=== PATIENT | female | born 1945 | race African-American/Black ===

== ENCOUNTER 2018-05-03 15:10 | Inpatient (IN) | payer MEDICARE, MEDICAID, OTHER ==
[~2018-05-03] VITALS: Ht 167.6 cm; Wt 74.1 kg
[2018-05-03 20:23] LABS: BASOPHILS % 0.5 % (0.0-2.0); HEMATOCRIT. 36.1 % (36.0-48.0); LYMPHOCYTES % 21.4 % (20.0-50.0); MEAN CORPUSCULAR HEMOGLOBIN 29.2 pg (28.0-32.0); MEAN CORPUSCULAR VOLUME 88.1 fL (81.0-99.0); MEAN PLATELET VOLUME 8.3 fl (7.4-10.4); MONOCYTES % 8.9 % (2.0-8.0); NEUTROPHILS % 68.2 % (40.0-76.0); PLATELET 318 x1000/uL (130-400); RED CELL DISTRIBUTION WIDTH 15.4 % (11.6-14.6)
[2018-05-03 20:28] LABS: CHLORIDE 104 mEq/L (98-107)
[2018-05-03 20:29] LABS: PARTIAL THROMBOPLASTIN TIME 25.7 sec (23.4-31.0); PROTHROMBIN TIME 10.1 sec (9.1-11.1)
[2018-05-03] MEDS ORDERED: SODIUM CHLORIDE 0.9% 1,000 ML IV ONE (20:53)
[2018-05-04] MEDS ORDERED: ONDANSETRON HCL 4MG/2ML INJ IV PRN (10:30)
[2018-05-04] MEDS ORDERED: ACETAMINOPHEN 325MG TABLET PO PRN (10:30)
[2018-05-04 10:35] VITALS: BP_SYST 126; BP_SYST 142; BP_SYST 162; BP_DIAS 74; BP_DIAS 75; BP_DIAS 81
[2018-05-04 12:00] VITALS: BP_SYST 124; BP_SYST 139; BP_SYST 140; BP_DIAS 67; BP_DIAS 77; BP_DIAS 84
[2018-05-04] MEDS: AMLODIPINE 5MG TABLET PO SCH ×2 (13:16→21:21)
[2018-05-04 14:22] VITALS: BP 162/81
[2018-05-04] MEDS ORDERED: OLME1TAB44 MT (14:52)
[2018-05-04] MEDS ORDERED: ZIPR60CA6 MT (14:52)
[2018-05-04] MEDS ORDERED: BENZ1TAB7 MT (14:52)
[2018-05-04] MEDS ORDERED: LORA1TAB PO (14:52)
[2018-05-04 16:00] VITALS: BP_SYST 125; BP_SYST 130; BP_DIAS 55; BP_DIAS 72
[2018-05-04 18:31] VITALS: BP 148/74
[2018-05-04 19:51] LABS: T4 FREE 1.02 ng/dL (0.76-1.46)
[2018-05-04 19:52] LABS: CREATINE KINASE MB FRACTION 1.5 ng/mL (0.5-3.6)
[2018-05-04 20:00] VITALS: BP 99/51
[2018-05-05] VITALS (7 sets, daily range): BP systolic 108–148; BP diastolic 57–78
[2018-05-05 00:30] LABS: CREATINE KINASE MB FRACTION 1.2 ng/mL (0.5-3.6)
[2018-05-05 06:17] LABS: BASOPHILS % 0.6 % (0.0-2.0); EOSINOPHILS % 2.5 % (0.0-5.0); HEMATOCRIT. 37.4 % (36.0-48.0); HEMOGLOBIN. 12.2 g/dL (12.0-16.0); LYMPHOCYTES % 22.7 % (20.0-50.0); MEAN CORPUSCULAR HEMOGLOBIN 28.9 pg (28.0-32.0); MEAN CORPUSCULAR VOLUME 88.7 fL (81.0-99.0); MEAN PLATELET VOLUME 8.2 fl (7.4-10.4); MONOCYTES % 9.3 % (2.0-8.0); NEUTROPHILS % 64.9 % (40.0-76.0); PLATELET 338 x1000/uL (130-400); RED BLOOD CELL COUNT 4.22 mill/uL (4.2-5.4); RED CELL DISTRIBUTION WIDTH 15.6 % (11.6-14.6)
[2018-05-05 06:33] LABS: CHLORIDE 106 mEq/L (98-107)
[2018-05-05 06:42] LABS: CREATINE KINASE 46 IU/L (26-192)
[2018-05-05 06:44] LABS: CREATINE KINASE MB FRACTION < 1.0 ng/mL (0.5-3.6)
[2018-05-05] MEDS: AMLODIPINE 5MG TABLET PO SCH (09:21)
== END 2018-05-05 19:00 | disposition home or self-care (01) | DRG 74 ==
LOC: ER 15:10 → 5WST 20:54 → EDBEDREQTM 20:58 → EDBEDREQ 20:58 → ENRESERV 05-04 07:11
PROVIDERS: ADMIT Internal Medicine; ATTEND Internal Medicine
DX: G90.8 Other disorders of autonomic nervous system (principal); E78.5 Hyperlipidemia, unspecified; E86.0 Dehydration; I11.9 Hypertensive heart disease without heart failure; G93.0 Cerebral cysts; M25.569 Pain in unspecified knee; Z87.891 Personal history of nicotine dependence; Z86.69 Personal history of other diseases of the nervous system and sense organs
CPT/HCPCS: 36415; 70551; 71045; 80048; 80061; 82550; 82553; 83036; 83880; 84439; 84443; 84484; 85379; 93005; 93306; 93880; 93923; 93970; 96360; 96361; 97161; 99285; J7030

== ENCOUNTER → 2018-06-16 | Outpatient (CLI) | payer MEDICARE, OTHER ==
[~2018-06-16] MED LIST: BENZ1TAB7 MT; LORA1TAB PO; OLME1TAB44 MT; ZIPR60CA6 MT
== END | disposition home or self-care (01) ==
LOC: MRI 10:44
PROVIDERS: ATTEND Neurological Surgery
DX: M48.061 Spinal stenosis, lumbar region without neurogenic claudication (principal); M47.816 Spondylosis without myelopathy or radiculopathy, lumbar region
CPT/HCPCS: 72148

== ENCOUNTER → 2018-06-26 | Outpatient (CLI) | payer MEDICARE, OTHER | END | disposition home or self-care (01) | LOC: MRI 12:01 | PROVIDERS: ATTEND Neurological Surgery | DX: M47.812 Spondylosis without myelopathy or radiculopathy, cervical region (principal); M48.02 Spinal stenosis, cervical region; G95.89 Other specified diseases of spinal cord; G95.29 Other cord compression; M25.78 Osteophyte, vertebrae | CPT/HCPCS: 72141 ==

== ENCOUNTER 2020-11-11 18:15 | Inpatient (IN) | payer MEDICARE, MEDICAID ==
[~2020-11-11] VITALS: Ht 170.2 cm; Wt 74.6 kg
[~2020-11-11 18:15] MED LIST changes: -OLME1TAB44 MT; +OLME1TAB92 MT
[2020-11-11] MEDS ORDERED: SODIUM CHLORIDE 0.9% 1,000 ML IV ONE (19:00)
[2020-11-11 19:20] LABS: BG BASE EXCESS -1.4 mmol/L (-2.0-2.0); BG CARBOXYHEMOGLOBIN 0.3 % (0.5-1.5); BG FRACTION INSPIRED OXYGEN 21; BG HCO3 ACT 22.8 mmol/L (22.0-26.0); BG METHEMOGLOBIN 0.1 % (0.0-1.5); BG OXYHEMOGLOBIN 91.6 % (94.0-97.0); BG PCO2 36.9 mmHg (35.0-45.0); BG PH 7.409 (7.350-7.450); BG PO2 66.1 mmHg (75.0-100.0); BG SAMPLE SITE RIGHT RADIAL; BG TOTAL HEMOGLOBIN 12.6 g/dL (12.0-18.0); BG VENT MODE ROOM AIR
[2020-11-11 19:35] LABS: HEMATOCRIT. 35.6 % (36.0-48.0); HEMOGLOBIN. 11.6 g/dL (12.0-16.0); MEAN CORPUSCULAR HEMOGLOBIN 28.5 pg (28.0-32.0); MEAN CORPUSCULAR VOLUME 87.3 fL (81.0-99.0); PLATELET 301 x1000/uL (130-400); RED BLOOD CELL COUNT 4.08 mill/uL (4.2-5.4); RED CELL DISTRIBUTION WIDTH 16.6 % (11.6-14.6)
[2020-11-11 19:42] LABS: CHLORIDE 106 mEq/L (98-107)
[2020-11-11 20:14] LABS: PLATELET ESTIMATE NORMAL
[2020-11-11 21:47] LABS: CLARITY URINE CLOUDY (CLEAR); COLOR URINE DARK YELLOW (YELLOW); KETONES URINE TRACE (NEGATIVE); LEUKOCYTE ESTERASE URINE NEGATIVE (NEGATIVE); NITRITE URINE NEGATIVE (NEGATIVE); OCCULT BLOOD URINE 2+ (NEGATIVE); PROTEIN URINE 2+ (NEGATIVE); SPECIFIC GRAVITY URINE 1.023 (1.005-1.030)
[2020-11-11] MEDS ORDERED: MAGNESIUM/ALUMINUM HYDROXIDE/SIMETHICONE 30ML UDC PO PRN (23:30)
[2020-11-11] MEDS ORDERED: DIPHENHYDRAMINE 50MG/ML VIAL IV PRN (23:30)
[2020-11-11] MEDS ORDERED: ONDANSETRON HCL 4MG/2ML INJ IV PRN (23:30)
[2020-11-11] MEDS ORDERED: ACETAMINOPHEN 325MG TABLET PO PRN ×2 (23:30)
[2020-11-11] MEDS ORDERED: CLONIDINE 0.1MG TABLET PO PRN (23:45)
[2020-11-11] MEDS: SODIUM CHLORIDE 0.9% 1,000 ML IV SCH (23:58)
[2020-11-12 05:47] LABS: BASOPHILS % 0.3 % (0.0-2.0); EOSINOPHILS % 0.8 % (0.0-5.0); HEMATOCRIT. 34.7 % (36.0-48.0); HEMOGLOBIN. 11.3 g/dL (12.0-16.0); LYMPHOCYTES % 13.5 % (20.0-50.0); MEAN CORPUSCULAR HEMOGLOBIN 27.9 pg (28.0-32.0); MEAN PLATELET VOLUME 8.1 fl (7.4-10.4); MONOCYTES % 10.2 % (2.0-8.0); NEUTROPHILS % 75.2 % (40.0-76.0); PLATELET 307 x1000/uL (130-400); RED BLOOD CELL COUNT 4.04 mill/uL (4.2-5.4); RED CELL DISTRIBUTION WIDTH 16.4 % (11.6-14.6)
[2020-11-12 06:02] LABS: PHOSPHORUS 3.5 mg/dL (2.5-4.9)
[2020-11-12] MEDS: SODIUM CHLORIDE 0.9% 1,000 ML IV SCH ×3 (09:35→22:40)
[2020-11-12] MEDS: PANTOPRAZOLE SODIUM 40 MG/VIAL IV SCH (09:35)
[2020-11-12 13:15] VITALS: BP 154/74
[2020-11-12] MEDS ORDERED: IPRATROPIUM/ALBUTEROL 0.5-3(2.5)MG/3ML NEB HHN PRN (14:30)
[2020-11-12 14:39] VITALS: BP 138/85
[2020-11-12] MEDS: IPRATROPIUM/ALBUTEROL 0.5-3(2.5)MG/3ML NEB HHN SCH ×2 (14:50→20:16)
[2020-11-12 16:22] VITALS: BP 119/74
[2020-11-12] MEDS: ENOXAPARIN 30MG/0.3ML SYR SUBCUT SCH (17:57)
[2020-11-12 19:01] VITALS: BP 118/74
[2020-11-12 20:00] VITALS: BP 145/66
[2020-11-12] MEDS ORDERED: ENOXAPARIN 40MG/0.4ML SYR SUBCUT SCH (20:00)
[2020-11-12] MEDS: BUDESONIDE 0.5MG/2ML NEB HHN SCH (20:16)
[2020-11-12] MEDS: QUETIAPINE FUMARATE 25MG TABLET PO SCH (21:45)
[2020-11-12] MEDS: AMLODIPINE 5MG TABLET PO SCH (21:45)
[2020-11-12 22:00] VITALS: BP 168/85
[2020-11-13] VITALS (13 sets, daily range): BP systolic 76–194; BP diastolic 46–104
[2020-11-13] MEDS: IPRATROPIUM/ALBUTEROL 0.5-3(2.5)MG/3ML NEB HHN SCH ×4 (02:23→21:55)
[2020-11-13] MEDS: SODIUM CHLORIDE 0.9% 1,000 ML IV SCH ×2 (06:18→23:59)
[2020-11-13] MEDS: AMLODIPINE 5MG TABLET PO SCH ×2 (08:48→21:00)
[2020-11-13] MEDS: QUETIAPINE FUMARATE 25MG TABLET PO SCH ×2 (08:48→21:00)
[2020-11-13] MEDS: BUDESONIDE 0.5MG/2ML NEB HHN SCH ×2 (09:21→21:55)
[2020-11-13] MEDS: PANTOPRAZOLE SODIUM 40 MG/VIAL IV SCH (09:26)
[2020-11-13 12:28] LABS: BG BASE EXCESS -5.4 mmol/L (-2.0-2.0); BG DEOXYHEMOGLOBIN 4.8 % (0.0-5.0); BG FRACTION INSPIRED OXYGEN 28; BG HCO3 ACT 17.8 mmol/L (22.0-26.0); BG METHEMOGLOBIN 0.2 % (0.0-1.5); BG OXYGEN SATURATION 95.2 % (92.0-98.5); BG PH 7.421 (7.350-7.450); BG PO2 77.3 mmHg (75.0-100.0); BG SAMPLE SITE LEFT RADIAL; BG VENT MODE NASAL CANNULA
[2020-11-13 14:16] LABS: T4 FREE 1.49 ng/dL (0.76-1.46)
[2020-11-13 14:53] LABS: CLARITY URINE CLOUDY (CLEAR); COLOR URINE YELLOW (YELLOW); KETONES URINE NEGATIVE (NEGATIVE); LEUKOCYTE ESTERASE URINE NEGATIVE (NEGATIVE); NITRITE URINE NEGATIVE (NEGATIVE); OCCULT BLOOD URINE 2+ (NEGATIVE); PH URINE 5.5 (4.5-8.0); PROTEIN URINE 2+ (NEGATIVE); SPECIFIC GRAVITY URINE 1.017 (1.005-1.030); UROBILINOGEN URINE 0.2 E.U./dL (0.2-1.0)
[2020-11-13] MEDS: ENOXAPARIN 30MG/0.3ML SYR SUBCUT SCH (16:10)
[2020-11-13] MEDS ORDERED: CEFTRIAXONE 1,000 MG in DEXTROSE 5% WATER 50 ML IV SCH (20:00)
[2020-11-13] MEDS ORDERED: BENZTROPINE MESYLATE 0.5MG TABLET PO SCH (21:00)
[2020-11-13] MEDS ORDERED: SODIUM CHLORIDE 0.9% 1,000 ML IV NR (21:45)
[2020-11-13] MEDS ORDERED: SODIUM CHLORIDE 0.9% 500 ML IV ONE (23:15)
[2020-11-13] MEDS: SODIUM CHLORIDE 0.9% 500 ML IV NR ×2 (23:16→23:58)
[2020-11-14] VITALS (12 sets, daily range): BP systolic 90–149; BP diastolic 51–72
[2020-11-14] MEDS: IPRATROPIUM/ALBUTEROL 0.5-3(2.5)MG/3ML NEB HHN SCH ×4 (01:29→20:12)
[2020-11-14] MEDS ORDERED: RISPERIDONE 1MG TABLET PO SCH (09:00)
[2020-11-14] MEDS: PANTOPRAZOLE SODIUM 40 MG/VIAL IV SCH (09:04)
[2020-11-14] MEDS: QUETIAPINE FUMARATE 25MG TABLET PO SCH ×2 (09:04→20:13)
[2020-11-14] MEDS: SODIUM CHLORIDE 0.9% 1,000 ML IV SCH (09:04)
[2020-11-14] MEDS: AMLODIPINE 5MG TABLET PO SCH ×2 (09:04→20:13)
[2020-11-14 12:51] LABS: HEMATOCRIT. 30.6 % (36.0-48.0); HEMOGLOBIN. 9.8 g/dL (12.0-16.0); MEAN CORPUSCULAR HEMOGLOBIN 27.9 pg (28.0-32.0); MEAN CORPUSCULAR VOLUME 86.7 fL (81.0-99.0); MEAN PLATELET VOLUME 8.7 fl (7.4-10.4); PLATELET 215 x1000/uL (130-400); RED BLOOD CELL COUNT 3.53 mill/uL (4.2-5.4); RED CELL DISTRIBUTION WIDTH 16.8 % (11.6-14.6)
[2020-11-14 13:00] LABS: CHLORIDE 119 mEq/L (98-107)
[2020-11-14] MEDS: BUDESONIDE 0.5MG/2ML NEB HHN SCH ×2 (13:20→20:13)
[2020-11-14] MEDS: ENOXAPARIN 30MG/0.3ML SYR SUBCUT SCH (16:29)
[2020-11-14] MEDS: PIPERACILLIN/TAZOBACTAM 3.375 G in DEXTROSE 5% WATER 50 ML IV SCH ×2 (16:29→20:21)
[2020-11-14 17:46] LABS: PLATELET ESTIMATE NORMAL
[2020-11-14] MEDS: DEXT 5%/0.45% NACL KCL 20MEQ/L 1,000 ML IV SCH (20:21)
[2020-11-14] MEDS ORDERED: VANCOMYCIN 1 G PREMIX 200 ML IV SCH ×2 (22:00)
[2020-11-15] VITALS (12 sets, daily range): BP systolic 100–146; BP diastolic 51–85
[2020-11-15] MEDS: IPRATROPIUM/ALBUTEROL 0.5-3(2.5)MG/3ML NEB HHN SCH ×4 (04:25→21:22)
[2020-11-15] MEDS: DEXT 5%/0.45% NACL KCL 20MEQ/L 1,000 ML IV SCH ×2 (04:52→14:36)
[2020-11-15 07:11] LABS: HEMATOCRIT. 31.8 % (36.0-48.0); HEMOGLOBIN. 10.2 g/dL (12.0-16.0); MEAN CORPUSCULAR HEMOGLOBIN 27.8 pg (28.0-32.0); MEAN CORPUSCULAR VOLUME 86.7 fL (81.0-99.0); MEAN PLATELET VOLUME 9.3 fl (7.4-10.4); PLATELET 225 x1000/uL (130-400); RED BLOOD CELL COUNT 3.67 mill/uL (4.2-5.4); RED CELL DISTRIBUTION WIDTH 16.5 % (11.6-14.6)
[2020-11-15 07:40] LABS: CORTISOL 17.6 ucg/dL
[2020-11-15 07:51] LABS: HEPATITIS B SURFACE ANTIGEN NEGATIVE
[2020-11-15] MEDS ORDERED: FAMOTIDINE 20MG TABLET PO SCH (09:00)
[2020-11-15] MEDS: AMLODIPINE 5MG TABLET PO SCH ×2 (09:00→20:38)
[2020-11-15] MEDS: BUDESONIDE 0.5MG/2ML NEB HHN SCH (10:07)
[2020-11-15] MEDS: PIPERACILLIN/TAZOBACTAM 3.375 G in DEXTROSE 5% WATER 50 ML IV SCH ×2 (10:46→20:37)
[2020-11-15] MEDS: QUETIAPINE FUMARATE 25MG TABLET PO SCH ×2 (10:46→20:38)
[2020-11-15] MEDS: FAMOTIDINE 20MG/2ML VIAL IV SCH (10:49)
[2020-11-15] MEDS ORDERED: VANCOMYCIN 750 MG PREMIX 150 ML IV SCH (12:30)
[2020-11-15] MEDS: ENOXAPARIN 30MG/0.3ML SYR SUBCUT SCH (18:09)
[2020-11-15 19:35] LABS: PLATELET ESTIMATE NORMAL
[2020-11-16] VITALS (10 sets, daily range): BP systolic 111–161; BP diastolic 66–94
[2020-11-16] MEDS: DEXT 5%/0.45% NACL KCL 20MEQ/L 1,000 ML IV SCH ×3 (01:36→21:41)
[2020-11-16] MEDS: IPRATROPIUM/ALBUTEROL 0.5-3(2.5)MG/3ML NEB HHN SCH ×3 (02:23→14:30)
[2020-11-16] MEDS: QUETIAPINE FUMARATE 25MG TABLET PO SCH ×2 (08:46→21:41)
[2020-11-16] MEDS: PIPERACILLIN/TAZOBACTAM 3.375 G in DEXTROSE 5% WATER 50 ML IV SCH ×3 (08:46→21:54)
[2020-11-16] MEDS: AMLODIPINE 5MG TABLET PO SCH ×2 (08:46→21:41)
[2020-11-16] MEDS: FAMOTIDINE 20MG/2ML VIAL IV SCH (08:46)
[2020-11-16] MEDS ORDERED: MAGNESIUM 4 G PREMIX 100 ML IV NR (16:30)
[2020-11-16] MEDS: ENOXAPARIN 30MG/0.3ML SYR SUBCUT SCH (16:36)
[2020-11-17 00:19] VITALS: BP 140/75
[2020-11-17] MEDS: IPRATROPIUM/ALBUTEROL 0.5-3(2.5)MG/3ML NEB HHN SCH ×4 (01:54→20:45)
[2020-11-17 04:00] VITALS: BP 147/73
[2020-11-17] MEDS: DEXT 5%/0.45% NACL KCL 20MEQ/L 1,000 ML IV SCH ×2 (06:11→16:44)
[2020-11-17] MEDS: PIPERACILLIN/TAZOBACTAM 3.375 G in DEXTROSE 5% WATER 50 ML IV SCH ×3 (06:12→21:13)
[2020-11-17 07:06] LABS: HEMATOCRIT. 39.9 % (36.0-48.0); HEMOGLOBIN. 12.4 g/dL (12.0-16.0); MEAN CORPUSCULAR HEMOGLOBIN 27.8 pg (28.0-32.0); MEAN CORPUSCULAR VOLUME 89.6 fL (81.0-99.0); MEAN PLATELET VOLUME 8.9 fl (7.4-10.4); PLATELET 206 x1000/uL (130-400); RED BLOOD CELL COUNT 4.45 mill/uL (4.2-5.4)
[2020-11-17 08:02] VITALS: BP 138/93
[2020-11-17] MEDS: QUETIAPINE FUMARATE 25MG TABLET PO SCH ×2 (08:18→21:13)
[2020-11-17] MEDS: AMLODIPINE 5MG TABLET PO SCH ×2 (08:18→21:14)
[2020-11-17] MEDS: FAMOTIDINE 20MG TABLET PO SCH (08:18)
[2020-11-17 11:45] VITALS: BP 140/84
[2020-11-17 12:47] LABS: PLATELET ESTIMATE NORMAL
[2020-11-17 16:02] VITALS: BP 143/82
[2020-11-17] MEDS: ENOXAPARIN 40MG/0.4ML SYR SUBCUT SCH (16:43)
[2020-11-17] MEDS ORDERED: MAGNESIUM HYDROXIDE 400MG/5ML 30ML UDC PO NR (17:05)
[2020-11-17] MEDS ORDERED: BISACODYL 10MG SUPP PR NR (17:05)
[2020-11-17 20:00] VITALS: BP 148/87
[2020-11-18] VITALS: BP 130/60
[2020-11-18] MEDS: IPRATROPIUM/ALBUTEROL 0.5-3(2.5)MG/3ML NEB HHN SCH ×4 (01:40→22:00)
[2020-11-18] MEDS: DEXT 5%/0.45% NACL KCL 20MEQ/L 1,000 ML IV SCH ×3 (03:06→23:00)
[2020-11-18 04:00] VITALS: BP 153/67
[2020-11-18] MEDS: PIPERACILLIN/TAZOBACTAM 3.375 G in DEXTROSE 5% WATER 50 ML IV SCH ×3 (06:22→21:05)
[2020-11-18 08:00] VITALS: BP 167/74
[2020-11-18] MEDS: DOCUSATE SODIUM 100MG CAPSULE PO SCH ×2 (09:08→18:12)
[2020-11-18] MEDS: FAMOTIDINE 20MG TABLET PO SCH (09:08)
[2020-11-18] MEDS: QUETIAPINE FUMARATE 25MG TABLET PO SCH ×2 (09:09→21:05)
[2020-11-18] MEDS: AMLODIPINE 5MG TABLET PO SCH ×2 (09:09→21:05)
[2020-11-18 12:00] VITALS: BP 164/62
[2020-11-18 16:06] VITALS: BP 155/80
[2020-11-18] MEDS: ENOXAPARIN 40MG/0.4ML SYR SUBCUT SCH (18:11)
[2020-11-18 20:00] VITALS: BP 150/75
[2020-11-19] VITALS: BP 158/91
[2020-11-19] MEDS: IPRATROPIUM/ALBUTEROL 0.5-3(2.5)MG/3ML NEB HHN SCH ×4 (01:45→21:49)
[2020-11-19 04:00] VITALS: BP 151/82
[2020-11-19] MEDS: PIPERACILLIN/TAZOBACTAM 3.375 G in DEXTROSE 5% WATER 50 ML IV SCH (05:51)
[2020-11-19 06:40] LABS: HEMATOCRIT. 32.6 % (36.0-48.0); HEMOGLOBIN. 10.8 g/dL (12.0-16.0); MEAN CORPUSCULAR HEMOGLOBIN 28.1 pg (28.0-32.0); MEAN CORPUSCULAR VOLUME 84.9 fL (81.0-99.0); MEAN PLATELET VOLUME 8.4 fl (7.4-10.4); PLATELET 251 x1000/uL (130-400); RED BLOOD CELL COUNT 3.84 mill/uL (4.2-5.4); RED CELL DISTRIBUTION WIDTH 16.1 % (11.6-14.6)
[2020-11-19 06:58] LABS: PHOSPHORUS 3.4 mg/dL (2.5-4.9)
[2020-11-19 08:00] VITALS: BP 119/80
[2020-11-19] MEDS: DOCUSATE SODIUM 100MG CAPSULE PO SCH ×2 (09:36→18:24)
[2020-11-19] MEDS: FAMOTIDINE 20MG TABLET PO SCH (09:36)
[2020-11-19] MEDS: QUETIAPINE FUMARATE 25MG TABLET PO SCH (09:36)
[2020-11-19] MEDS: AMLODIPINE 5MG TABLET PO SCH ×2 (09:38→21:10)
[2020-11-19] MEDS: LEVOFLOXACIN 500MG TABLET PO SCH (11:49)
[2020-11-19 12:00] VITALS: BP 149/80
[2020-11-19] MEDS ORDERED: POTASSIUM CHLORIDE 20MEQ/PACKET PO NR (12:00)
[2020-11-19 13:31] LABS: PLATELET ESTIMATE NORMAL
[2020-11-19] MEDS: MAGNESIUM GLUCONATE 500MG TABLET PO SCH (14:40)
[2020-11-19 16:00] VITALS: BP 157/79
[2020-11-19] MEDS: ENOXAPARIN 40MG/0.4ML SYR SUBCUT SCH (18:25)
[2020-11-19 20:00] VITALS: BP 153/78
[2020-11-19] MEDS: RISPERIDONE 1MG TABLET PO SCH (21:09)
[2020-11-19] MEDS: METRONIDAZOLE 500MG TABLET PO SCH (21:10)
[2020-11-20] VITALS: BP 137/77
[2020-11-20] MEDS: IPRATROPIUM/ALBUTEROL 0.5-3(2.5)MG/3ML NEB HHN SCH ×3 (01:26→15:09)
[2020-11-20 04:00] VITALS: BP 142/73
[2020-11-20 08:00] VITALS: BP 134/75
[2020-11-20] MEDS: RISPERIDONE 1MG TABLET PO SCH ×2 (08:40→21:56)
[2020-11-20] MEDS: DOCUSATE SODIUM 100MG CAPSULE PO SCH ×2 (08:40→17:19)
[2020-11-20] MEDS: MAGNESIUM GLUCONATE 500MG TABLET PO SCH (08:40)
[2020-11-20] MEDS: METRONIDAZOLE 500MG TABLET PO SCH ×2 (08:41→21:56)
[2020-11-20] MEDS: AMLODIPINE 5MG TABLET PO SCH ×2 (08:41→21:56)
[2020-11-20] MEDS: FAMOTIDINE 20MG TABLET PO SCH (08:41)
[2020-11-20] MEDS: LOSARTAN POTASSIUM 25 MG TABLET PO SCH (08:41)
[2020-11-20] MEDS: LEVOFLOXACIN 500MG TABLET PO SCH (11:15)
[2020-11-20 12:00] VITALS: BP 133/77
[2020-11-20 16:00] VITALS: BP 93/75
[2020-11-20] MEDS: ENOXAPARIN 40MG/0.4ML SYR SUBCUT SCH (17:19)
[2020-11-20 20:00] VITALS: BP 136/74
[2020-11-21] VITALS (7 sets, daily range): BP systolic 111–140; BP diastolic 52–73
[2020-11-21] MEDS: IPRATROPIUM/ALBUTEROL 0.5-3(2.5)MG/3ML NEB HHN SCH ×2 (08:01→15:50)
[2020-11-21] MEDS ORDERED: TAMSULOSIN HCL 0.4MG SR CAPSULE PO SCH (09:00)
[2020-11-21] MEDS: AMLODIPINE 5MG TABLET PO SCH ×2 (09:12→20:20)
[2020-11-21] MEDS: MAGNESIUM GLUCONATE 500MG TABLET PO SCH (09:12)
[2020-11-21] MEDS: RISPERIDONE 1MG TABLET PO SCH ×2 (09:12→20:20)
[2020-11-21] MEDS: FAMOTIDINE 20MG TABLET PO SCH (09:12)
[2020-11-21] MEDS: DOCUSATE SODIUM 100MG CAPSULE PO SCH ×2 (09:12→20:20)
[2020-11-21] MEDS: METRONIDAZOLE 500MG TABLET PO SCH ×2 (09:12→20:20)
[2020-11-21] MEDS: LOSARTAN POTASSIUM 25 MG TABLET PO SCH (09:16)
[2020-11-21] MEDS: LEVOFLOXACIN 500MG TABLET PO SCH (11:05)
[2020-11-21] MEDS ORDERED: ATORVASTATIN CALCIUM 10MG TABLET PO SCH (21:00)
[2020-11-22] MEDS ORDERED: ASPIRIN 81MG EC TABLET PO SCH (09:00)
== END 2020-11-21 20:40 | DRG 871 ==
LOC: ER 18:15 → MICUSO 22:58 → 3WST 11-12 11:31 → 6WST 11-16 10:52
PROVIDERS: ADMIT Internal Medicine; ATTEND Internal Medicine
DX: A41.51 Sepsis due to Escherichia coli [E. coli] (principal); G93.41 Metabolic encephalopathy; G82.50 Quadriplegia, unspecified; I63.9 Cerebral infarction, unspecified; N17.9 Acute kidney failure, unspecified; I31.3 Pericardial effusion (noninflammatory); M62.82 Rhabdomyolysis; G95.20 Unspecified cord compression; N39.0 Urinary tract infection, site not specified; E86.0 Dehydration; F20.9 Schizophrenia, unspecified; G93.89 Other specified disorders of brain; J44.9 Chronic obstructive pulmonary disease, unspecified; I25.10 Atherosclerotic heart disease of native coronary artery without angina pectoris; K56.41 Fecal impaction; E11.65 Type 2 diabetes mellitus with hyperglycemia; D64.9 Anemia, unspecified; R13.10 Dysphagia, unspecified; R53.81 Other malaise; R26.9 Unspecified abnormalities of gait and mobility; E83.42 Hypomagnesemia; I48.0 Paroxysmal atrial fibrillation; I65.22 Occlusion and stenosis of left carotid artery; M48.02 Spinal stenosis, cervical region; G93.0 Cerebral cysts; I11.0 Hypertensive heart disease with heart failure; I50.9 Heart failure, unspecified; Z87.891 Personal history of nicotine dependence; Z86.73 Personal history of transient ischemic attack (TIA), and cerebral infarction without residual deficits; Z79.899 Other long term (current) drug therapy; Z82.49 Family history of ischemic heart disease and other diseases of the circulatory system
CPT/HCPCS: 36415; 36600; 70551; 71045; 74176; 76770; 80048; 80053; 80061; 80202; 81003; 82375; 82533; 82550; 82805; 82962; 83036; 83605; 83735; 83880; 84100; 84145; 84439; 84443; 84484; 85025; 85651; 86140; 86803; 87077; 87186; 87340; 92523; 92610; 93005; 93306; 93880; 94640; 97162; 97166; 97530; 99285; C1893; C9113; J0696; J1650; J2543; J3370; J3475; J3490; J7030; J7040; J7060; J7626; A4315

== ENCOUNTER 2020-11-21 20:45 | Inpatient (IN) | payer MEDICARE, MEDICAID ==
[~2020-11-21] VITALS: Ht 170.2 cm; Wt 74.6 kg
[2020-11-21 20:45] VITALS: BP 113/63
[2020-11-21] MEDS ORDERED: ACETAMINOPHEN 325MG TABLET PO PRN (21:45)
[2020-11-21] MEDS ORDERED: ONDANSETRON HCL 4MG TABLET PO PRN (21:45)
[2020-11-21] MEDS ORDERED: DIPHENHYDRAMINE 25MG CAPSULE PO PRN (21:45)
[2020-11-21] MEDS ORDERED: IPRATROPIUM/ALBUTEROL 0.5-3(2.5)MG/3ML NEB HHN PRN (21:45)
[2020-11-21] MEDS ORDERED: MAGNESIUM/ALUMINUM HYDROXIDE/SIMETHICONE 30ML UDC PO PRN (22:15)
[2020-11-21] MEDS ORDERED: CLONIDINE 0.1MG TABLET PO PRN (22:15)
[2020-11-22 06:14] LABS: CLARITY URINE CLEAR (CLEAR); COLOR URINE YELLOW (YELLOW); KETONES URINE NEGATIVE (NEGATIVE); LEUKOCYTE ESTERASE URINE TRACE (NEGATIVE); NITRITE URINE NEGATIVE (NEGATIVE); OCCULT BLOOD URINE NEGATIVE (NEGATIVE); PH URINE 6.5 (4.5-8.0); PROTEIN URINE NEGATIVE (NEGATIVE); SPECIFIC GRAVITY URINE 1.006 (1.005-1.030); UROBILINOGEN URINE 0.2 E.U./dL (0.2-1.0)
[2020-11-22 07:40] LABS: BASOPHILS % 0.3 % (0.0-2.0); EOSINOPHILS % 1.2 % (0.0-5.0); HEMATOCRIT. 32.3 % (36.0-48.0); HEMOGLOBIN. 10.5 g/dL (12.0-16.0); LYMPHOCYTES % 13.4 % (20.0-50.0); MEAN PLATELET VOLUME 8.1 fl (7.4-10.4); NEUTROPHILS % 76.1 % (40.0-76.0); PLATELET 413 x1000/uL (130-400); RED BLOOD CELL COUNT 3.75 mill/uL (4.2-5.4); RED CELL DISTRIBUTION WIDTH 16.4 % (11.6-14.6)
[2020-11-22 07:51] LABS: CHLORIDE 108 mEq/L (98-107)
[2020-11-22 08:23] VITALS: BP 121/62
[2020-11-22] MEDS: RISPERIDONE 1MG TABLET PO SCH (09:14)
[2020-11-22] MEDS: LOSARTAN POTASSIUM 25 MG TABLET PO SCH (09:15)
[2020-11-22] MEDS: MAGNESIUM GLUCONATE 500MG TABLET PO SCH (09:15)
[2020-11-22] MEDS: BISACODYL 5MG TABLET PO PRN (09:15)
[2020-11-22] MEDS: ASPIRIN 81MG TABLET PO SCH (09:15)
[2020-11-22] MEDS: TAMSULOSIN HCL 0.4MG SR CAPSULE PO SCH (09:15)
[2020-11-22] MEDS: METRONIDAZOLE 500MG TABLET PO SCH ×2 (09:16→21:53)
[2020-11-22] MEDS: FAMOTIDINE 20MG TABLET PO SCH (09:16)
[2020-11-22] MEDS: DOCUSATE SODIUM 100MG CAPSULE PO SCH ×2 (09:16→16:02)
[2020-11-22] MEDS: AMLODIPINE 5MG TABLET PO SCH ×2 (09:16→21:00)
[2020-11-22 09:57] LABS: BG BASE EXCESS 0.4 mmol/L (-2.0-2.0); BG CARBOXYHEMOGLOBIN 0.3 % (0.5-1.5); BG DEOXYHEMOGLOBIN 5.3 % (0.0-5.0); BG FRACTION INSPIRED OXYGEN 21; BG HCO3 ACT 24.5 mmol/L (22.0-26.0); BG METHEMOGLOBIN 0.3 % (0.0-1.5); BG OXYGEN SATURATION 94.7 % (92.0-98.5); BG OXYHEMOGLOBIN 94.1 % (94.0-97.0); BG PH 7.428 (7.350-7.450); BG PO2 75.1 mmHg (75.0-100.0); BG SAMPLE SITE RIGHT RADIAL; BG TOTAL HEMOGLOBIN 11.6 g/dL (12.0-18.0); BG VENT MODE ROOM AIR
[2020-11-22] MEDS: LEVOFLOXACIN 500MG TABLET PO SCH (11:31)
[2020-11-22] MEDS: ACETAMINOPHEN 325MG TABLET PO PRN (16:02)
[2020-11-22 20:00] VITALS: BP 126/50
[2020-11-22] MEDS: ATORVASTATIN CALCIUM 10MG TABLET PO SCH (21:53)
[2020-11-23 08:00] VITALS: BP 136/61
[2020-11-23] MEDS: LOSARTAN POTASSIUM 25 MG TABLET PO SCH (08:10)
[2020-11-23] MEDS: ASPIRIN 81MG TABLET PO SCH (08:10)
[2020-11-23] MEDS: MAGNESIUM GLUCONATE 500MG TABLET PO SCH (08:10)
[2020-11-23] MEDS: RISPERIDONE 1MG TABLET PO SCH (08:10)
[2020-11-23] MEDS: AMLODIPINE 5MG TABLET PO SCH ×2 (08:10→21:31)
[2020-11-23] MEDS: FAMOTIDINE 20MG TABLET PO SCH (08:11)
[2020-11-23] MEDS: TAMSULOSIN HCL 0.4MG SR CAPSULE PO SCH (08:11)
[2020-11-23] MEDS: DOCUSATE SODIUM 100MG CAPSULE PO SCH ×2 (08:11→17:18)
[2020-11-23] MEDS: METRONIDAZOLE 500MG TABLET PO SCH ×2 (08:11→21:29)
[2020-11-23] MEDS: LEVOFLOXACIN 500MG TABLET PO SCH (11:53)
[2020-11-23] MEDS ORDERED: LACTULOSE 20G/30ML UDC PO SCH (14:15)
[2020-11-23] MEDS: ACETAMINOPHEN 325MG TABLET PO PRN (18:36)
[2020-11-23 19:37] LABS: HEPATITIS B SURFACE ANTIGEN NEGATIVE
[2020-11-23 20:00] VITALS: BP 100/61
[2020-11-23] MEDS: ATORVASTATIN CALCIUM 10MG TABLET PO SCH (21:29)
[2020-11-24 07:58] VITALS: BP 120/61
[2020-11-24] MEDS: AMLODIPINE 5MG TABLET PO SCH ×2 (09:00→20:30)
[2020-11-24] MEDS: FAMOTIDINE 20MG TABLET PO SCH (09:15)
[2020-11-24] MEDS: RISPERIDONE 1MG TABLET PO SCH (09:15)
[2020-11-24] MEDS: TAMSULOSIN HCL 0.4MG SR CAPSULE PO SCH (09:15)
[2020-11-24] MEDS: DOCUSATE SODIUM 100MG CAPSULE PO SCH ×2 (09:15→17:07)
[2020-11-24] MEDS: MAGNESIUM GLUCONATE 500MG TABLET PO SCH (09:15)
[2020-11-24] MEDS: LOSARTAN POTASSIUM 25 MG TABLET PO SCH (09:16)
[2020-11-24] MEDS: ASPIRIN 81MG TABLET PO SCH (09:16)
[2020-11-24] MEDS: METRONIDAZOLE 500MG TABLET PO SCH ×2 (09:16→20:30)
[2020-11-24] MEDS: LEVOFLOXACIN 500MG TABLET PO SCH (10:21)
[2020-11-24 10:29] LABS: BASOPHILS % 0.4 % (0.0-2.0); EOSINOPHILS % 1.6 % (0.0-5.0); HEMATOCRIT. 34.1 % (36.0-48.0); HEMOGLOBIN. 11.1 g/dL (12.0-16.0); LYMPHOCYTES % 15.2 % (20.0-50.0); MEAN CORPUSCULAR HEMOGLOBIN 27.6 pg (28.0-32.0); MEAN PLATELET VOLUME 7.8 fl (7.4-10.4); MONOCYTES % 7.5 % (2.0-8.0); NEUTROPHILS % 75.3 % (40.0-76.0); PLATELET 665 x1000/uL (130-400); RED BLOOD CELL COUNT 4.01 mill/uL (4.2-5.4); RED CELL DISTRIBUTION WIDTH 16.5 % (11.6-14.6)
[2020-11-24 10:48] LABS: CHLORIDE 109 mEq/L (98-107)
[2020-11-24 11:31] LABS: TOTAL IRON BINDING CAPACITY 240 ug/dL (250-450)
[2020-11-24 11:39] LABS: VITAMIN B12 SERUM > 2000.0 pg/mL (211-911)
[2020-11-24 11:56] LABS: FERRITIN 510 ng/mL (10-291)
[2020-11-24 20:00] VITALS: BP 116/57
[2020-11-24] MEDS: ATORVASTATIN CALCIUM 10MG TABLET PO SCH (20:30)
[2020-11-24] MEDS: ACETAMINOPHEN 325MG TABLET PO PRN (20:31)
[2020-11-25 08:00] VITALS: BP 141/69
[2020-11-25] MEDS: AMLODIPINE 5MG TABLET PO SCH ×2 (10:17→21:24)
[2020-11-25] MEDS: DOCUSATE SODIUM 100MG CAPSULE PO SCH ×2 (10:18→17:45)
[2020-11-25] MEDS: MAGNESIUM GLUCONATE 500MG TABLET PO SCH (10:18)
[2020-11-25] MEDS: TAMSULOSIN HCL 0.4MG SR CAPSULE PO SCH (10:18)
[2020-11-25] MEDS: METRONIDAZOLE 500MG TABLET PO SCH ×2 (10:18→21:24)
[2020-11-25] MEDS: LOSARTAN POTASSIUM 25 MG TABLET PO SCH (10:18)
[2020-11-25] MEDS: RISPERIDONE 1MG TABLET PO SCH (10:18)
[2020-11-25] MEDS: LEVOFLOXACIN 500MG TABLET PO SCH (10:18)
[2020-11-25] MEDS: ASPIRIN 81MG TABLET PO SCH (10:18)
[2020-11-25] MEDS: FAMOTIDINE 20MG TABLET PO SCH (10:19)
[2020-11-25] MEDS ORDERED: ZOLPIDEM TARTRATE 5MG TABLET PO PRN (19:30)
[2020-11-25 20:00] VITALS: BP 118/53
[2020-11-25] MEDS: ATORVASTATIN CALCIUM 10MG TABLET PO SCH (21:24)
[2020-11-25] MEDS: IPRATROPIUM/ALBUTEROL 0.5-3(2.5)MG/3ML NEB HHN SCH (23:47)
[2020-11-26 08:00] VITALS: BP 130/60
[2020-11-26] MEDS: IPRATROPIUM/ALBUTEROL 0.5-3(2.5)MG/3ML NEB HHN SCH ×2 (08:52→13:05)
[2020-11-26] MEDS: ASPIRIN 81MG TABLET PO SCH (09:57)
[2020-11-26] MEDS: MAGNESIUM GLUCONATE 500MG TABLET PO SCH (09:57)
[2020-11-26] MEDS: RISPERIDONE 1MG TABLET PO SCH (09:57)
[2020-11-26] MEDS: AMLODIPINE 5MG TABLET PO SCH ×2 (09:57→20:58)
[2020-11-26] MEDS: METRONIDAZOLE 500MG TABLET PO SCH ×2 (09:57→20:57)
[2020-11-26] MEDS: LOSARTAN POTASSIUM 25 MG TABLET PO SCH (09:57)
[2020-11-26] MEDS: FAMOTIDINE 20MG TABLET PO SCH (09:57)
[2020-11-26] MEDS: DOCUSATE SODIUM 100MG CAPSULE PO SCH ×2 (09:57→17:13)
[2020-11-26] MEDS: TAMSULOSIN HCL 0.4MG SR CAPSULE PO SCH (10:00)
[2020-11-26] MEDS: LEVOFLOXACIN 500MG TABLET PO SCH (10:06)
[2020-11-26 20:00] VITALS: BP 126/61
[2020-11-26] MEDS: ATORVASTATIN CALCIUM 10MG TABLET PO SCH (20:57)
[2020-11-27 06:03] LABS: BASOPHILS % 1.2 % (0.0-2.0); EOSINOPHILS % 1.9 % (0.0-5.0); HEMOGLOBIN. 11.1 g/dL (12.0-16.0); LYMPHOCYTES % 25.8 % (20.0-50.0); MEAN CORPUSCULAR HEMOGLOBIN 28.2 pg (28.0-32.0); MEAN CORPUSCULAR VOLUME 84.2 fL (81.0-99.0); MEAN PLATELET VOLUME 7.5 fl (7.4-10.4); NEUTROPHILS % 60.1 % (40.0-76.0); PLATELET 675 x1000/uL (130-400); RED BLOOD CELL COUNT 3.92 mill/uL (4.2-5.4); RED CELL DISTRIBUTION WIDTH 16.5 % (11.6-14.6)
[2020-11-27 06:05] LABS: CHLORIDE 109 mEq/L (98-107)
[2020-11-27] MEDS: IPRATROPIUM/ALBUTEROL 0.5-3(2.5)MG/3ML NEB HHN SCH ×3 (07:37→22:07)
[2020-11-27 07:50] VITALS: BP 134/64
[2020-11-27] MEDS: ASPIRIN 81MG TABLET PO SCH (09:21)
[2020-11-27] MEDS: TAMSULOSIN HCL 0.4MG SR CAPSULE PO SCH (09:21)
[2020-11-27] MEDS: DOCUSATE SODIUM 100MG CAPSULE PO SCH ×2 (09:22→16:35)
[2020-11-27] MEDS: FAMOTIDINE 20MG TABLET PO SCH (09:22)
[2020-11-27] MEDS: RISPERIDONE 1MG TABLET PO SCH (09:22)
[2020-11-27] MEDS: MAGNESIUM GLUCONATE 500MG TABLET PO SCH (09:22)
[2020-11-27] MEDS: METRONIDAZOLE 500MG TABLET PO SCH (09:22)
[2020-11-27] MEDS: LOSARTAN POTASSIUM 25 MG TABLET PO SCH (09:28)
[2020-11-27] MEDS: AMLODIPINE 5MG TABLET PO SCH ×2 (10:14→21:00)
[2020-11-27] MEDS: LEVOFLOXACIN 500MG TABLET PO SCH (10:18)
[2020-11-27] MEDS ORDERED: LACTULOSE 20G/30ML UDC PO SCH ×2 (16:30→17:00)
[2020-11-27] MEDS: BISACODYL 5MG TABLET PO PRN (16:36)
[2020-11-27 20:00] VITALS: BP 132/72
[2020-11-27] MEDS: ATORVASTATIN CALCIUM 10MG TABLET PO SCH (21:00)
[2020-11-28] MEDS: IPRATROPIUM/ALBUTEROL 0.5-3(2.5)MG/3ML NEB HHN SCH ×2 (07:46→14:00)
[2020-11-28 08:19] VITALS: BP 126/57
[2020-11-28] MEDS: DOCUSATE SODIUM 100MG CAPSULE PO SCH ×2 (09:00→16:48)
[2020-11-28] MEDS: ASPIRIN 81MG TABLET PO SCH (09:44)
[2020-11-28] MEDS: LOSARTAN POTASSIUM 25 MG TABLET PO SCH (09:44)
[2020-11-28] MEDS: TAMSULOSIN HCL 0.4MG SR CAPSULE PO SCH (09:44)
[2020-11-28] MEDS: AMLODIPINE 5MG TABLET PO SCH ×2 (09:44→20:22)
[2020-11-28] MEDS: MAGNESIUM GLUCONATE 500MG TABLET PO SCH (09:45)
[2020-11-28] MEDS: RISPERIDONE 1MG TABLET PO SCH (09:45)
[2020-11-28] MEDS: FAMOTIDINE 20MG TABLET PO SCH (09:45)
[2020-11-28 20:00] VITALS: BP 127/62
[2020-11-28] MEDS: ACETAMINOPHEN 325MG TABLET PO PRN (20:21)
[2020-11-28] MEDS: ATORVASTATIN CALCIUM 10MG TABLET PO SCH (20:22)
[2020-11-28 21:19] LABS: CLARITY URINE CLEAR (CLEAR); COLOR URINE YELLOW (YELLOW); KETONES URINE NEGATIVE (NEGATIVE); LEUKOCYTE ESTERASE URINE 2+ (NEGATIVE); NITRITE URINE NEGATIVE (NEGATIVE); OCCULT BLOOD URINE NEGATIVE (NEGATIVE); PH URINE 6.5 (4.5-8.0); PROTEIN URINE NEGATIVE (NEGATIVE); SPECIFIC GRAVITY URINE 1.012 (1.005-1.030); UROBILINOGEN URINE 0.2 E.U./dL (0.2-1.0)
[2020-11-29] MEDS: IPRATROPIUM/ALBUTEROL 0.5-3(2.5)MG/3ML NEB HHN SCH ×4 (01:59→22:00)
[2020-11-29 07:16] LABS: CHLORIDE 109 mEq/L (98-107)
[2020-11-29 07:23] LABS: BASOPHILS % 1.1 % (0.0-2.0); EOSINOPHILS % 1.7 % (0.0-5.0); HEMATOCRIT. 32.2 % (36.0-48.0); HEMOGLOBIN. 11.1 g/dL (12.0-16.0); LYMPHOCYTES % 27.4 % (20.0-50.0); MEAN CORPUSCULAR HEMOGLOBIN 28.8 pg (28.0-32.0); MEAN CORPUSCULAR VOLUME 83.4 fL (81.0-99.0); MEAN PLATELET VOLUME 7.6 fl (7.4-10.4); MONOCYTES % 10.2 % (2.0-8.0); NEUTROPHILS % 59.6 % (40.0-76.0); PLATELET 683 x1000/uL (130-400); RED BLOOD CELL COUNT 3.86 mill/uL (4.2-5.4); RED CELL DISTRIBUTION WIDTH 16.8 % (11.6-14.6)
[2020-11-29 07:35] LABS: LDL CHOLESTEROL 63 mg/dL (5-100)
[2020-11-29 07:37] LABS: HDL CHOLESTEROL 39 mg/dL (40-59)
[2020-11-29] MEDS: ASPIRIN 81MG TABLET PO SCH (08:07)
[2020-11-29] MEDS: LOSARTAN POTASSIUM 25 MG TABLET PO SCH (08:07)
[2020-11-29] MEDS: DOCUSATE SODIUM 100MG CAPSULE PO SCH ×2 (08:07→17:17)
[2020-11-29] MEDS: TAMSULOSIN HCL 0.4MG SR CAPSULE PO SCH (08:08)
[2020-11-29] MEDS: AMLODIPINE 5MG TABLET PO SCH ×2 (08:08→21:39)
[2020-11-29] MEDS: FAMOTIDINE 20MG TABLET PO SCH (08:08)
[2020-11-29] MEDS: MAGNESIUM GLUCONATE 500MG TABLET PO SCH (08:08)
[2020-11-29] MEDS: RISPERIDONE 1MG TABLET PO SCH (08:08)
[2020-11-29 08:19] VITALS: BP 129/67
[2020-11-29] MEDS: BETHANECHOL CHLORIDE 25 MG TABLET PO SCH ×2 (12:34→17:17)
[2020-11-29 20:00] VITALS: BP 128/64
[2020-11-29] MEDS: ATORVASTATIN CALCIUM 10MG TABLET PO SCH (21:38)
[2020-11-30 07:56] VITALS: BP 117/62
[2020-11-30] MEDS: FAMOTIDINE 20MG TABLET PO SCH (08:22)
[2020-11-30] MEDS: AMLODIPINE 5MG TABLET PO SCH (08:23)
[2020-11-30] MEDS: DOCUSATE SODIUM 100MG CAPSULE PO SCH (08:23)
[2020-11-30] MEDS: ASPIRIN 81MG TABLET PO SCH (08:23)
[2020-11-30] MEDS: LOSARTAN POTASSIUM 25 MG TABLET PO SCH (08:23)
[2020-11-30] MEDS: MAGNESIUM GLUCONATE 500MG TABLET PO SCH (08:23)
[2020-11-30] MEDS: RISPERIDONE 1MG TABLET PO SCH (08:25)
[2020-11-30] MEDS: IPRATROPIUM/ALBUTEROL 0.5-3(2.5)MG/3ML NEB HHN SCH (10:10)
[2020-11-30 14:01] VITALS: BP 117/62
[2020-12-01 17:06] LABS: 25-HYDROXY VITAMIN D3 29 ng/mL (.)
== END 2020-11-30 15:25 | disposition home health service (06) | DRG 64 ==
PROVIDERS: ADMIT Physical Medicine & Rehabilitation Spinal Cord Injury Medicine; ATTEND Internal Medicine
DX: I63.9 Cerebral infarction, unspecified (principal); G93.41 Metabolic encephalopathy; A41.51 Sepsis due to Escherichia coli [E. coli]; E43 Unspecified severe protein-calorie malnutrition; G82.50 Quadriplegia, unspecified; N39.0 Urinary tract infection, site not specified; M62.82 Rhabdomyolysis; N17.9 Acute kidney failure, unspecified; G95.20 Unspecified cord compression; M47.12 Other spondylosis with myelopathy, cervical region; G93.0 Cerebral cysts; I50.9 Heart failure, unspecified; I11.0 Hypertensive heart disease with heart failure; N32.89 Other specified disorders of bladder; K56.41 Fecal impaction; E11.9 Type 2 diabetes mellitus without complications; N28.89 Other specified disorders of kidney and ureter; F20.9 Schizophrenia, unspecified; J44.9 Chronic obstructive pulmonary disease, unspecified; D64.9 Anemia, unspecified; R53.81 Other malaise; R26.9 Unspecified abnormalities of gait and mobility; R13.10 Dysphagia, unspecified; I65.22 Occlusion and stenosis of left carotid artery; M48.02 Spinal stenosis, cervical region; R74.01 Elevation of levels of liver transaminase levels; F39 Unspecified mood [affective] disorder; R00.1 Bradycardia, unspecified; I95.9 Hypotension, unspecified; F01.50 Vascular dementia, unspecified severity, without behavioral disturbance, psychotic disturbance, mood disturbance, and anxiety; F41.9 Anxiety disorder, unspecified; Z87.891 Personal history of nicotine dependence; Z68.25 Body mass index [BMI] 25.0-25.9, adult; Z85.118 Personal history of other malignant neoplasm of bronchus and lung; Z86.73 Personal history of transient ischemic attack (TIA), and cerebral infarction without residual deficits; Z92.21 Personal history of antineoplastic chemotherapy; Z79.899 Other long term (current) drug therapy; Z82.49 Family history of ischemic heart disease and other diseases of the circulatory system
CPT/HCPCS: 36415; 36600; 71045; 80048; 80053; 80061; 81003; 82306; 82375; 82607; 82728; 82746; 82805; 83540; 83550; 83735; 84134; 84443; 85025; 86705; 86709; 86803; 87340; 92523; 92610; 93005; 94640; 97110; 97116; 97150; 97162; 97166; 97530; 97535; A4315; A5200

== ENCOUNTER 2021-06-24 13:11 | Inpatient (IN) | payer MEDICARE, MEDICAID ==
[~2021-06-24] VITALS: Ht 170.2 cm; Wt 80.3 kg
[2021-06-24 14:21] LABS: HEMATOCRIT. 41.6 % (36.0-48.0); HEMOGLOBIN. 13.3 g/dL (12.0-16.0); MEAN CORPUSCULAR HEMOGLOBIN 27.3 pg (28.0-32.0); MEAN CORPUSCULAR VOLUME 85.2 fL (81.0-99.0); MEAN PLATELET VOLUME 8.2 fl (7.4-10.4); PLATELET 374 x1000/uL (130-400); RED BLOOD CELL COUNT 4.88 mill/uL (4.2-5.4); RED CELL DISTRIBUTION WIDTH 17.1 % (11.6-14.6)
[2021-06-24 14:25] LABS: CHLORIDE 106 mEq/L (98-107)
[2021-06-24 14:57] LABS: PLATELET ESTIMATE NORMAL
[2021-06-24 18:28] LABS: CLARITY URINE CLEAR (CLEAR); COLOR URINE DARK YELLOW (YELLOW); KETONES URINE TRACE (NEGATIVE); LEUKOCYTE ESTERASE URINE NEGATIVE (NEGATIVE); NITRITE URINE NEGATIVE (NEGATIVE); OCCULT BLOOD URINE NEGATIVE (NEGATIVE); PROTEIN URINE 1+ (NEGATIVE); SPECIFIC GRAVITY URINE 1.025 (1.005-1.030)
[2021-06-24] MEDS ORDERED: ASPIRIN 81MG TABLET PO ONE (20:00)
[2021-06-25] MEDS ORDERED: ONDANSETRON HCL 4MG/2ML INJ IV PRN (08:00)
[2021-06-25] MEDS ORDERED: PIPERACILLIN/TAZ 3.375G PREMIX 50 ML IV NR (08:30)
[2021-06-25] MEDS: ASPIRIN 81MG TABLET PO SCH (09:00)
[2021-06-25 12:00] VITALS: BP 147/86
[2021-06-25] MEDS ORDERED: PIPERACILLIN/TAZOBACTAM 3.375 G in DEXTROSE 5% WATER 50 ML IV SCH (15:00)
[2021-06-25 15:25] VITALS: BP 147/86
[2021-06-25 16:00] VITALS: BP 124/82
[2021-06-25] MEDS: PIPERACILLIN/TAZOBACTAM 3.375 G in DEXTROSE 5% WATER 50 ML IV SCH ×2 (18:24→22:01)
[2021-06-25] MEDS ORDERED: LOSA25TA26 PO (18:43)
[2021-06-25] MEDS ORDERED: OMEP40CA20 PO (18:43)
[2021-06-25] MEDS ORDERED: ASPI-1497 PO (18:43)
[2021-06-25] MEDS ORDERED: FERR15DR7 PO (18:43)
[2021-06-25] MEDS ORDERED: RISP2TAB85 PO (18:43)
[2021-06-25] MEDS ORDERED: AMLO10TA80 PO (18:43)
[2021-06-25] MEDS ORDERED: ROSU40TA PO (18:43)
[2021-06-25] MEDS ORDERED: BENZ1TAB7 PO (18:43)
[2021-06-25 20:00] VITALS: BP 141/78
[2021-06-25] MEDS: ENOXAPARIN 30MG/0.3ML SYR SUBCUT SCH (21:54)
[2021-06-26] VITALS: BP 137/80
[2021-06-26 04:00] VITALS: BP 149/89
[2021-06-26] MEDS: PIPERACILLIN/TAZOBACTAM 3.375 G in DEXTROSE 5% WATER 50 ML IV SCH ×3 (05:20→22:07)
[2021-06-26 08:00] VITALS: BP 157/84
[2021-06-26] MEDS ORDERED: ENOXAPARIN 40MG/0.4ML SYR SUBCUT SCH ×2 (09:00→21:00)
[2021-06-26] MEDS: ASPIRIN 81MG TABLET PO SCH (09:10)
[2021-06-26] MEDS: ENOXAPARIN 30MG/0.3ML SYR SUBCUT SCH (09:11)
[2021-06-26 12:00] VITALS: BP 121/72
[2021-06-26 13:19] LABS: BASOPHILS % 0.2 % (0.0-2.0); EOSINOPHILS % 0.4 % (0.0-5.0); HEMATOCRIT. 35.3 % (36.0-48.0); HEMOGLOBIN. 11.6 g/dL (12.0-16.0); LYMPHOCYTES % 7.4 % (20.0-50.0); MEAN CORPUSCULAR HEMOGLOBIN 27.8 pg (28.0-32.0); MEAN PLATELET VOLUME 8.4 fl (7.4-10.4); MONOCYTES % 11.1 % (2.0-8.0); NEUTROPHILS % 80.9 % (40.0-76.0); PLATELET 361 x1000/uL (130-400); RED BLOOD CELL COUNT 4.16 mill/uL (4.2-5.4); RED CELL DISTRIBUTION WIDTH 17.1 % (11.6-14.6)
[2021-06-26 13:30] LABS: CHLORIDE 111 mEq/L (98-107)
[2021-06-26 16:00] VITALS: BP 127/72
[2021-06-26] MEDS ORDERED: GADOTERATE MEGLUMINE 5 MMOL/10 ML VIAL IV ONE (16:51)
[2021-06-26 20:00] VITALS: BP 120/84
[2021-06-27] VITALS: BP 115/81
[2021-06-27 04:00] VITALS: BP 127/80
[2021-06-27] MEDS: PIPERACILLIN/TAZOBACTAM 3.375 G in DEXTROSE 5% WATER 50 ML IV SCH ×3 (06:52→21:25)
[2021-06-27 08:00] VITALS: BP 155/74
[2021-06-27] MEDS: ASPIRIN 81MG TABLET PO SCH (09:42)
[2021-06-27 12:00] VITALS: BP 151/47
[2021-06-27] MEDS ORDERED: IOHEXOL-300 100 ML BOTTLE ONE (13:24)
[2021-06-27] MEDS ORDERED: BISACODYL 10MG SUPP PR NR (14:00)
[2021-06-27] MEDS ORDERED: BISACODYL 10MG SUPP PR PRN (14:00)
[2021-06-27] MEDS ORDERED: HYDROCODONE/ACETAMINOPHEN 5/325MG TABLET PO PRN (14:15)
[2021-06-27] MEDS ORDERED: NALOXONE HCL 0.4MG/ML VIAL IV PRN (14:30)
[2021-06-27 16:00] VITALS: BP 149/71
[2021-06-27 16:32] LABS: BASOPHILS % 0.3 % (0.0-2.0); EOSINOPHILS % 2.6 % (0.0-5.0); HEMATOCRIT. 34.6 % (36.0-48.0); HEMOGLOBIN. 11.2 g/dL (12.0-16.0); MEAN CORPUSCULAR HEMOGLOBIN 28.1 pg (28.0-32.0); MEAN CORPUSCULAR VOLUME 86.5 fL (81.0-99.0); MEAN PLATELET VOLUME 8.4 fl (7.4-10.4); MONOCYTES % 7.9 % (2.0-8.0); NEUTROPHILS % 79.2 % (40.0-76.0); PLATELET 338 x1000/uL (130-400)
[2021-06-27 16:46] LABS: CHLORIDE 107 mEq/L (98-107)
[2021-06-27 20:00] VITALS: BP 144/73
[2021-06-27] MEDS: ENOXAPARIN 80MG/0.8ML SYR SUBCUT SCH (21:26)
[2021-06-28] VITALS: BP 136/75
[2021-06-28 04:00] VITALS: BP 152/79
[2021-06-28] MEDS: PIPERACILLIN/TAZOBACTAM 3.375 G in DEXTROSE 5% WATER 50 ML IV SCH ×3 (05:29→21:01)
[2021-06-28 08:00] VITALS: BP 146/76
[2021-06-28] MEDS: ENOXAPARIN 80MG/0.8ML SYR SUBCUT SCH ×2 (09:33→21:01)
[2021-06-28 12:00] VITALS: BP 145/70
[2021-06-28 16:00] VITALS: BP 145/68
[2021-06-28 20:00] VITALS: BP 120/81
[2021-06-29] VITALS: BP 144/77
[2021-06-29 04:00] VITALS: BP 138/78
[2021-06-29] MEDS: PIPERACILLIN/TAZOBACTAM 3.375 G in DEXTROSE 5% WATER 50 ML IV SCH ×3 (05:13→21:31)
[2021-06-29 08:00] VITALS: BP 138/87
[2021-06-29] MEDS: ENOXAPARIN 80MG/0.8ML SYR SUBCUT SCH ×2 (08:45→21:31)
[2021-06-29 12:00] VITALS: BP 140/80
[2021-06-29 16:00] VITALS: BP 130/80
[2021-06-29 20:00] VITALS: BP 152/93
[2021-06-29] MEDS: ACETAMINOPHEN 325MG TABLET PO PRN (21:31)
[2021-06-29] MEDS: CLONIDINE 0.1MG TABLET PO PRN (21:34)
[2021-06-30] VITALS: BP 108/70
[2021-06-30 04:00] VITALS: BP 114/62
[2021-06-30] MEDS: PIPERACILLIN/TAZOBACTAM 3.375 G in DEXTROSE 5% WATER 50 ML IV SCH (06:01)
[2021-06-30 08:00] VITALS: BP 134/77
[2021-06-30 11:38] LABS: CHLORIDE 110 mEq/L (98-107)
[2021-06-30 12:00] VITALS: BP_SYST 127; BP_SYST 134; BP_DIAS 77; BP_DIAS 78
[2021-06-30] MEDS: ENOXAPARIN 80MG/0.8ML SYR SUBCUT SCH ×2 (13:21→21:35)
[2021-06-30 16:00] VITALS: BP 147/85
[2021-06-30 20:00] VITALS: BP 133/73
[2021-06-30 20:46] LABS: BASOPHILS % 0.3 % (0.0-2.0); EOSINOPHILS % 2.4 % (0.0-5.0); HEMATOCRIT. 35.1 % (36.0-48.0); HEMOGLOBIN. 11.5 g/dL (12.0-16.0); LYMPHOCYTES % 15.2 % (20.0-50.0); MEAN CORPUSCULAR HEMOGLOBIN 27.8 pg (28.0-32.0); MEAN CORPUSCULAR VOLUME 84.6 fL (81.0-99.0); MEAN PLATELET VOLUME 8.7 fl (7.4-10.4); MONOCYTES % 7.8 % (2.0-8.0); NEUTROPHILS % 74.3 % (40.0-76.0); PLATELET 362 x1000/uL (130-400); RED BLOOD CELL COUNT 4.15 mill/uL (4.2-5.4); RED CELL DISTRIBUTION WIDTH 16.5 % (11.6-14.6)
[2021-07-01] VITALS: BP 133/79
[2021-07-01 04:00] VITALS: BP 150/97
[2021-07-01 08:00] VITALS: BP 159/92
[2021-07-01] MEDS: ENOXAPARIN 80MG/0.8ML SYR SUBCUT SCH ×2 (11:14→21:34)
[2021-07-01 12:00] VITALS: BP 152/92
[2021-07-01 16:00] VITALS: BP 171/84
[2021-07-01] MEDS: CLONIDINE 0.1MG TABLET PO PRN (16:55)
[2021-07-01 20:00] VITALS: BP 139/88
[2021-07-01] MEDS: AMLODIPINE 10MG TABLET PO SCH (21:25)
[2021-07-02] VITALS: BP 150/58
[2021-07-02 04:00] VITALS: BP 139/42
[2021-07-02 08:00] VITALS: BP 153/81
[2021-07-02] MEDS: AMLODIPINE 10MG TABLET PO SCH (09:26)
[2021-07-02] MEDS: ENOXAPARIN 80MG/0.8ML SYR SUBCUT SCH (09:26)
[2021-07-02 10:48] LABS: CLARITY URINE CLOUDY (CLEAR); COLOR URINE RED (YELLOW); KETONES URINE NEGATIVE (NEGATIVE); LEUKOCYTE ESTERASE URINE 2+ (NEGATIVE); NITRITE URINE NEGATIVE (NEGATIVE); OCCULT BLOOD URINE 3+ (NEGATIVE); PH URINE 7.5 (4.5-8.0); PROTEIN URINE 2+ (NEGATIVE); SPECIFIC GRAVITY URINE 1.015 (1.005-1.030)
[2021-07-02 12:00] VITALS: BP 123/75
[2021-07-02] MEDS: SODIUM CHLORIDE 0.45% 1,000 ML IV SCH (13:26)
[2021-07-02] MEDS: CEFTRIAXONE 1,000 MG in DEXTROSE 5% WATER 50 ML IV SCH (14:24)
[2021-07-02 16:00] VITALS: BP 121/63
[2021-07-02 16:04] LABS: BASOPHILS % 0.2 % (0.0-2.0); EOSINOPHILS % 1.1 % (0.0-5.0); HEMATOCRIT. 33.6 % (36.0-48.0); LYMPHOCYTES % 7.5 % (20.0-50.0); MEAN CORPUSCULAR HEMOGLOBIN 27.9 pg (28.0-32.0); MEAN CORPUSCULAR VOLUME 84.9 fL (81.0-99.0); MEAN PLATELET VOLUME 7.9 fl (7.4-10.4); MONOCYTES % 8.6 % (2.0-8.0); NEUTROPHILS % 82.6 % (40.0-76.0); PLATELET 519 x1000/uL (130-400); RED BLOOD CELL COUNT 3.96 mill/uL (4.2-5.4)
[2021-07-02 16:16] LABS: CHLORIDE 104 mEq/L (98-107)
[2021-07-02 20:00] VITALS: BP 139/57
[2021-07-03] VITALS: BP 131/69
[2021-07-03 04:00] VITALS: BP 147/67
[2021-07-03] MEDS: SODIUM CHLORIDE 0.45% 1,000 ML IV SCH ×2 (04:48→16:44)
[2021-07-03 08:30] VITALS: BP 160/67
[2021-07-03] MEDS: AMLODIPINE 10MG TABLET PO SCH (08:39)
[2021-07-03 12:13] VITALS: BP 155/75
[2021-07-03 16:30] VITALS: BP 146/68
[2021-07-03] MEDS: CEFTRIAXONE 1,000 MG in DEXTROSE 5% WATER 50 ML IV SCH (16:44)
[2021-07-03 20:00] VITALS: BP 142/78
[2021-07-04] VITALS: BP 122/63
[2021-07-04 04:00] VITALS: BP 145/57
[2021-07-04] MEDS: SODIUM CHLORIDE 0.45% 1,000 ML IV SCH (04:45)
[2021-07-04 08:00] VITALS: BP 172/77
[2021-07-04] MEDS: AMLODIPINE 10MG TABLET PO SCH (09:02)
[2021-07-04] MEDS: ACETAMINOPHEN 325MG TABLET PO PRN (09:02)
[2021-07-04 12:00] VITALS: BP 156/60
[2021-07-04] MEDS: CEFTRIAXONE 1,000 MG in DEXTROSE 5% WATER 50 ML IV SCH (12:12)
[2021-07-04 12:38] VITALS: BP 156/60
== END 2021-07-04 16:35 | DRG 871 ==
LOC: ER 13:15 → EDBEDREQ 15:43 → MICUSO 18:14 → EDBEDREQ 18:18 → EDBEDREQTM 18:18 → 6WST 06-25 11:32
PROVIDERS: ADMIT Internal Medicine Nephrology; ATTEND Internal Medicine Nephrology
DX: A41.9 Sepsis, unspecified organism (principal); G93.41 Metabolic encephalopathy; J18.9 Pneumonia, unspecified organism; I26.99 Other pulmonary embolism without acute cor pulmonale; J44.0 Chronic obstructive pulmonary disease with (acute) lower respiratory infection; C34.90 Malignant neoplasm of unspecified part of unspecified bronchus or lung; C79.31 Secondary malignant neoplasm of brain; N17.9 Acute kidney failure, unspecified; N39.0 Urinary tract infection, site not specified; Z20.822 Contact with and (suspected) exposure to COVID-19; G93.0 Cerebral cysts; R65.20 Severe sepsis without septic shock; I10 Essential (primary) hypertension; F20.9 Schizophrenia, unspecified; Z87.891 Personal history of nicotine dependence
CPT/HCPCS: 36415; 70553; 71045; 71260; 74177; 80048; 80053; 80061; 81003; 82140; 82962; 83036; 84145; 84443; 84484; 85025; 87106; 87426; 92610; 93005; 93970; 97110; 97162; 97166; 97530; 97535; 99285; A9577; C1893; J0696; J1650; J2543; J7060; Q9967

== ENCOUNTER 2022-02-15 20:00 | Inpatient (IN) | payer MEDICARE, MEDICAID ==
[~2022-02-15] VITALS: Ht 165.1 cm; Wt 61.2 kg
[~2022-02-15 20:00] MED LIST changes: +AMLO10TA80 PO; +ASPI-1497 PO; -BENZ1TAB7 MT; +BENZ1TAB7 PO; +FERR15DR7 PO; -LORA1TAB PO; +LOSA25TA26 PO; -OLME1TAB92 MT; +OMEP40CA20 PO; +RISP2TAB85 PO; +ROSU40TA PO; -ZIPR60CA6 MT
[2022-02-15] MEDS ORDERED: ACETAMINOPHEN 650MG SUPP PR STA (20:51)
[2022-02-15] MEDS ORDERED: SODIUM CHLORIDE 0.9% 1000ML BAG (SEPSIS BOLUS) IV ONE (21:00)
[2022-02-15] MEDS ORDERED: VANCOMYCIN 1G PREMIX 200 ML IV ONE (21:00)
[2022-02-15] MEDS ORDERED: PIPERACILLIN/TAZ 3.375G PREMIX 50 ML IV ONE (21:00)
[2022-02-15 21:18] LABS: BG BASE EXCESS -0.3 mmol/L (-2.0-2.0); BG CARBOXYHEMOGLOBIN 0.7 % (0.5-1.5); BG DEOXYHEMOGLOBIN 3.9 % (0.0-5.0); BG FRACTION INSPIRED OXYGEN 28; BG HCO3 ACT 22.8 mmol/L (22.0-26.0); BG METHEMOGLOBIN 0.4 % (0.0-1.5); BG OXYGEN SATURATION 96.1 % (92.0-98.5); BG PCO2 32.7 mmHg (35.0-45.0); BG PH 7.462 (7.350-7.450); BG PO2 77.4 mmHg (75.0-100.0); BG SAMPLE SITE RIGHT RADIAL; BG TOTAL HEMOGLOBIN 13.2 g/dL (12.0-18.0); BG VENT MODE OXYGENATOR
[2022-02-15 22:50] LABS: HEMOGLOBIN. 12.3 g/dL (12.0-16.0); MEAN CORPUSCULAR HEMOGLOBIN 26.9 pg (28.0-32.0); MEAN CORPUSCULAR VOLUME 83.1 fL (81.0-99.0); MEAN PLATELET VOLUME 7.8 fl (7.4-10.4); PLATELET 418 x1000/uL (130-400); RED BLOOD CELL COUNT 4.57 mill/uL (4.2-5.4); RED CELL DISTRIBUTION WIDTH 18.6 % (11.6-14.6)
[2022-02-15 22:57] LABS: CHLORIDE 108 mEq/L (98-107)
[2022-02-15 22:58] LABS: INR 1.2
[2022-02-15 23:20] LABS: PLATELET ESTIMATE SLIGHTLY INCREASED
[2022-02-16] MEDS ORDERED: VANCOMYCIN 1G PREMIX 200 ML IV NR (02:45)
[2022-02-16] MEDS ORDERED: ACETAMINOPHEN 650MG SUPP PR NR (02:45)
[2022-02-16] MEDS ORDERED: PIPERACILLIN/TAZ 3.375G PREMIX 50 ML IV NR (02:45)
[2022-02-16 04:30] LABS: CLARITY URINE CLEAR (CLEAR); COLOR URINE DARK YELLOW (YELLOW); KETONES URINE NEGATIVE (NEGATIVE); LEUKOCYTE ESTERASE URINE NEGATIVE (NEGATIVE); NITRITE URINE NEGATIVE (NEGATIVE); OCCULT BLOOD URINE NEGATIVE (NEGATIVE); PH URINE 5.5 (4.5-8.0); PROTEIN URINE 2+ (NEGATIVE); SPECIFIC GRAVITY URINE 1.027 (1.005-1.030)
[2022-02-16] MEDS ORDERED: HYDROCODONE/ACETAMINOPHEN 7.5/325MG TABLET PO PRN (14:30)
[2022-02-16] MEDS ORDERED: LORAZEPAM 0.5MG TABLET PO PRN (14:30)
[2022-02-16] MEDS ORDERED: CLONIDINE 0.1MG TABLET PO PRN (14:30)
[2022-02-16] MEDS ORDERED: GUAIFENESIN 200MG/10ML SUGAR FREE UDC PO PRN (14:30)
[2022-02-16] MEDS ORDERED: HYDROCODONE/ACETAMINOPHEN 10/325MG TABLET PO PRN (14:30)
[2022-02-16] MEDS ORDERED: ACETAMINOPHEN 325MG TABLET PO PRN ×2 (14:30)
[2022-02-16] MEDS ORDERED: NALOXONE HCL 0.4MG/ML VIAL IV PRN (14:45)
[2022-02-16 15:21] VITALS: BP 107/71
[2022-02-16 16:00] VITALS: BP 123/60
[2022-02-16] MEDS: VANCOMYCIN 500MG PREMIX 100 ML IV SCH (18:29)
[2022-02-16 20:00] VITALS: BP 103/67
[2022-02-16] MEDS ORDERED: DEXTROSE 50% WATER 50ML SYRINGE IV PRN (20:30)
[2022-02-16] MEDS: INSULIN LISPRO 100 UNITS/ML SUBCUT SCH (21:00)
[2022-02-16] MEDS: BLOOD SUGAR DIAGNOSTIC STRIP TEST SCH (21:00)
[2022-02-16] MEDS: PIPERACILLIN/TAZOBACTAM 3.375 G in DEXTROSE 5% WATER 50 ML IV SCH (22:36)
[2022-02-16] MEDS: DEXT 5%/0.9% NACL 1,000 ML IV SCH (22:37)
[2022-02-17] VITALS: BP 126/60
[2022-02-17 04:00] VITALS: BP 131/78
[2022-02-17] MEDS: VANCOMYCIN 500MG PREMIX 100 ML IV SCH ×2 (05:12→21:09)
[2022-02-17] MEDS: PIPERACILLIN/TAZOBACTAM 3.375 G in DEXTROSE 5% WATER 50 ML IV SCH ×3 (05:13→21:09)
[2022-02-17] MEDS: INSULIN LISPRO 100 UNITS/ML SUBCUT SCH ×4 (07:00→20:34)
[2022-02-17] MEDS: BLOOD SUGAR DIAGNOSTIC STRIP TEST SCH ×4 (07:00→20:34)
[2022-02-17 08:00] VITALS: BP 100/52
[2022-02-17] MEDS: PANTOPRAZOLE SODIUM 40 MG/VIAL IV SCH (09:04)
[2022-02-17] MEDS: DEXT 5%/0.9% NACL 1,000 ML IV SCH ×2 (09:04→22:16)
[2022-02-17] MEDS ORDERED: IOHEXOL-300 100 ML BOTTLE ONE (10:30)
[2022-02-17 12:00] VITALS: BP 126/63
[2022-02-17] MEDS ORDERED: IPRATROPIUM/ALBUTEROL 0.5-3(2.5)MG/3ML NEB HHN PRN (12:45)
[2022-02-17 16:00] VITALS: BP 118/76
[2022-02-17 20:00] VITALS: BP 123/85
[2022-02-17 20:13] LABS: HEMATOCRIT. 32.4 % (36.0-48.0); HEMOGLOBIN. 10.5 g/dL (12.0-16.0); MEAN CORPUSCULAR VOLUME 83.5 fL (81.0-99.0); MEAN PLATELET VOLUME 7.3 fl (7.4-10.4); PLATELET 336 x1000/uL (130-400); RED BLOOD CELL COUNT 3.88 mill/uL (4.2-5.4); RED CELL DISTRIBUTION WIDTH 17.9 % (11.6-14.6)
[2022-02-17 20:33] LABS: CHLORIDE 111 mEq/L (98-107)
[2022-02-17 22:21] LABS: PLATELET ESTIMATE NORMAL
[2022-02-18] VITALS: BP 118/69
[2022-02-18] MEDS: IPRATROPIUM BROMIDE (0.02%) 0.5MG/2.5ML NEB HHN SCH ×3 (00:23→20:15)
[2022-02-18 04:00] VITALS: BP 121/53
[2022-02-18] MEDS: PIPERACILLIN/TAZOBACTAM 3.375 G in DEXTROSE 5% WATER 50 ML IV SCH ×3 (05:13→21:16)
[2022-02-18 06:10] LABS: HEMATOCRIT. 32.6 % (36.0-48.0); HEMOGLOBIN. 10.7 g/dL (12.0-16.0); MEAN CORPUSCULAR HEMOGLOBIN 27.2 pg (28.0-32.0); MEAN CORPUSCULAR VOLUME 82.7 fL (81.0-99.0); MEAN PLATELET VOLUME 7.5 fl (7.4-10.4); PLATELET 311 x1000/uL (130-400); RED BLOOD CELL COUNT 3.94 mill/uL (4.2-5.4); RED CELL DISTRIBUTION WIDTH 17.9 % (11.6-14.6)
[2022-02-18] MEDS: BLOOD SUGAR DIAGNOSTIC STRIP TEST SCH ×4 (06:51→19:59)
[2022-02-18] MEDS: INSULIN LISPRO 100 UNITS/ML SUBCUT SCH ×4 (06:52→19:59)
[2022-02-18 08:00] VITALS: BP 115/72
[2022-02-18 09:40] LABS: CHLORIDE 113 mEq/L (98-107)
[2022-02-18] MEDS: PANTOPRAZOLE SODIUM 40 MG/VIAL IV SCH (10:13)
[2022-02-18] MEDS: VANCOMYCIN 500MG PREMIX 100 ML IV SCH (10:14)
[2022-02-18 12:00] VITALS: BP 130/71
[2022-02-18] MEDS: BENZTROPINE MESYLATE 1MG TABLET PO SCH (12:59)
[2022-02-18] MEDS: AMLODIPINE 10MG TABLET PO SCH (13:00)
[2022-02-18] MEDS: DEXT 5%/0.9% NACL 1,000 ML IV SCH (13:03)
[2022-02-18] MEDS: DEXTROSE 5% WATER 1,000 ML IV SCH (15:38)
[2022-02-18 16:00] VITALS: BP 133/83
[2022-02-18] MEDS: VANCOMYCIN 750MG PREMIX 150 ML IV SCH (19:52)
[2022-02-18 20:00] VITALS: BP 105/62
[2022-02-18] MEDS: ATORVASTATIN CALCIUM 20MG TABLET PO SCH (21:16)
[2022-02-18] MEDS: RISPERIDONE 1MG TABLET PO SCH (21:16)
[2022-02-19] VITALS: BP 120/60
[2022-02-19] MEDS: IPRATROPIUM BROMIDE (0.02%) 0.5MG/2.5ML NEB HHN SCH ×4 (01:44→20:30)
[2022-02-19 04:00] VITALS: BP 140/80
[2022-02-19] MEDS: DEXTROSE 5% WATER 1,000 ML IV SCH ×2 (04:03→18:25)
[2022-02-19] MEDS: PIPERACILLIN/TAZOBACTAM 3.375 G in DEXTROSE 5% WATER 50 ML IV SCH ×3 (05:14→21:54)
[2022-02-19] MEDS: BLOOD SUGAR DIAGNOSTIC STRIP TEST SCH ×4 (05:49→21:53)
[2022-02-19] MEDS: INSULIN LISPRO 100 UNITS/ML SUBCUT SCH ×4 (05:50→21:55)
[2022-02-19 07:38] LABS: HEMATOCRIT. 29.9 % (36.0-48.0); HEMOGLOBIN. 9.8 g/dL (12.0-16.0); MEAN CORPUSCULAR HEMOGLOBIN 26.9 pg (28.0-32.0); MEAN CORPUSCULAR VOLUME 82.5 fL (81.0-99.0); MEAN PLATELET VOLUME 7.7 fl (7.4-10.4); PLATELET 322 x1000/uL (130-400); RED BLOOD CELL COUNT 3.63 mill/uL (4.2-5.4); RED CELL DISTRIBUTION WIDTH 18.3 % (11.6-14.6)
[2022-02-19 08:00] VITALS: BP 140/80
[2022-02-19] MEDS: VANCOMYCIN 750MG PREMIX 150 ML IV SCH ×2 (08:56→20:38)
[2022-02-19] MEDS: RISPERIDONE 1MG TABLET PO SCH ×2 (08:57→21:54)
[2022-02-19] MEDS: BENZTROPINE MESYLATE 1MG TABLET PO SCH (08:57)
[2022-02-19] MEDS: AMLODIPINE 10MG TABLET PO SCH (08:59)
[2022-02-19] MEDS: PANTOPRAZOLE SODIUM 40 MG/VIAL IV SCH (08:59)
[2022-02-19 09:22] LABS: CHLORIDE 110 mEq/L (98-107)
[2022-02-19 09:41] LABS: PLATELET ESTIMATE NORMAL
[2022-02-19 12:00] VITALS: BP 111/58
[2022-02-19] MEDS: LIPASE/PROTEASE/AMYLASE 4,200/14,200/24,600 UNITS CAP DR PO SCH ×2 (13:14→18:23)
[2022-02-19 16:00] VITALS: BP 125/69
[2022-02-19] MEDS: ATORVASTATIN CALCIUM 20MG TABLET PO SCH (20:38)
[2022-02-20] VITALS (7 sets, daily range): BP systolic 102–130; BP diastolic 52–62
[2022-02-20] MEDS: IPRATROPIUM BROMIDE (0.02%) 0.5MG/2.5ML NEB HHN SCH ×3 (00:15→13:30)
[2022-02-20] MEDS: BLOOD SUGAR DIAGNOSTIC STRIP TEST SCH ×4 (06:01→20:36)
[2022-02-20] MEDS: INSULIN LISPRO 100 UNITS/ML SUBCUT SCH ×4 (06:01→20:36)
[2022-02-20 06:21] LABS: NUCLEATED RED BLOOD CELLS 1 /100 WBC; PLATELET ESTIMATE NORMAL
[2022-02-20] MEDS: PIPERACILLIN/TAZOBACTAM 3.375 G in DEXTROSE 5% WATER 50 ML IV SCH ×3 (06:36→22:43)
[2022-02-20] MEDS: AMLODIPINE 10MG TABLET PO SCH (08:21)
[2022-02-20] MEDS: VANCOMYCIN 750MG PREMIX 150 ML IV SCH ×2 (08:21→20:52)
[2022-02-20] MEDS: RISPERIDONE 1MG TABLET PO SCH ×2 (08:21→20:36)
[2022-02-20] MEDS: LIPASE/PROTEASE/AMYLASE 4,200/14,200/24,600 UNITS CAP DR PO SCH ×3 (08:21→16:52)
[2022-02-20] MEDS: DEXTROSE 5% WATER 1,000 ML IV SCH ×2 (08:22→19:35)
[2022-02-20] MEDS: BENZTROPINE MESYLATE 1MG TABLET PO SCH (08:22)
[2022-02-20] MEDS ORDERED: FAMOTIDINE 20MG TABLET PO SCH (09:00)
[2022-02-20] MEDS ORDERED: FAMOTIDINE 20MG/2ML VIAL IV SCH (09:00)
[2022-02-20] MEDS: ATORVASTATIN CALCIUM 20MG TABLET PO SCH (20:36)
[2022-02-21] VITALS: BP 131/76
[2022-02-21] MEDS: IPRATROPIUM BROMIDE (0.02%) 0.5MG/2.5ML NEB HHN SCH (00:27)
== END 2022-02-21 02:50 | DRG 871 ==
LOC: ER 20:00 → 8WST 02-16 00:56 → EDBEDREQ 02-16 01:01
PROVIDERS: ADMIT Internal Medicine; ATTEND Internal Medicine
DX: A41.9 Sepsis, unspecified organism (principal); E43 Unspecified severe protein-calorie malnutrition; G93.41 Metabolic encephalopathy; J18.9 Pneumonia, unspecified organism; J96.01 Acute respiratory failure with hypoxia; D84.9 Immunodeficiency, unspecified; I48.20 Chronic atrial fibrillation, unspecified; I48.92 Unspecified atrial flutter; J44.0 Chronic obstructive pulmonary disease with (acute) lower respiratory infection; C34.90 Malignant neoplasm of unspecified part of unspecified bronchus or lung; C79.31 Secondary malignant neoplasm of brain; T45.1X5A Adverse effect of antineoplastic and immunosuppressive drugs, initial encounter; Z20.822 Contact with and (suspected) exposure to COVID-19; F20.9 Schizophrenia, unspecified; E11.9 Type 2 diabetes mellitus without complications; I10 Essential (primary) hypertension; I25.10 Atherosclerotic heart disease of native coronary artery without angina pectoris; Z79.4 Long term (current) use of insulin; Z86.711 Personal history of pulmonary embolism; Z79.82 Long term (current) use of aspirin; Z79.899 Other long term (current) drug therapy; Z68.22 Body mass index [BMI] 22.0-22.9, adult; Y92.89 Other specified places as the place of occurrence of the external cause
CPT/HCPCS: 36415; 36600; 71045; 71260; 76604; 80048; 80053; 80202; 81003; 82375; 82805; 82962; 83036; 83605; 83735; 83880; 84100; 84484; 85025; 87426; 87804; 92610; 93005; 93306; 94640; 99291; C1893; C9113; J1815; J2543; J3370; J7030; J7042; J7060; J7070; Q9967; A4315